=== PATIENT | male | born 1990 | race Two or more races ===

== ENCOUNTER → 2023-08-20 08:04 | Outpatient (REF) | payer OTHER, SELFPAY | LOC: HWRAD 08:04 | PROVIDERS: ATTENDING PHYSICIAN Nurse Practitioner Family | DX: R13.19 Other dysphagia (principal); R52 Pain, unspecified; R50.9 Fever, unspecified | CPT/HCPCS: 76536 ==

== ENCOUNTER → 2023-10-27 09:19 | Outpatient (REF) | payer OTHER, SELFPAY | LOC: HWRAD 09:19 | PROVIDERS: ATTENDING PHYSICIAN Chiropractor; FAMILY PHYSICIAN Nurse Practitioner Family | DX: M54.2 Cervicalgia (principal); M54.6 Pain in thoracic spine | CPT/HCPCS: 72050; 72072 ==

== ENCOUNTER → 2024-01-15 08:55 | Outpatient (REF) | payer OTHER, SELFPAY | LOC: HWRAD 08:55 | PROVIDERS: ATTENDING PHYSICIAN Internal Medicine Hematology & Oncology; FAMILY PHYSICIAN Nurse Practitioner Family | DX: D75.838 Other thrombocytosis (principal); D47.1 Chronic myeloproliferative disease; D72.19 Other eosinophilia; R59.0 Localized enlarged lymph nodes | CPT/HCPCS: 71260; 74177; Q9967 ==

== ENCOUNTER → 2024-02-13 09:27 | Outpatient (REF) | payer OTHER, SELFPAY | LOC: HWRAD 09:27 | PROVIDERS: ATTENDING PHYSICIAN Otolaryngology; FAMILY PHYSICIAN Nurse Practitioner Family | DX: R59.9 Enlarged lymph nodes, unspecified (principal) | CPT/HCPCS: 70491; Q9967 ==

== ENCOUNTER → 2024-12-30 11:29 | Outpatient (REF) | payer BC, SELFPAY | LOC: HWRAD 11:29 | PROVIDERS: ATTENDING PHYSICIAN Nurse Practitioner Family | DX: E04.1 Nontoxic single thyroid nodule (principal) | CPT/HCPCS: 76536 ==

== ENCOUNTER → 2025-03-14 11:24 | Outpatient (REF) | payer BC, SELFPAY | LOC: PAVMRI 11:24 | PROVIDERS: ATTENDING PHYSICIAN Nurse Practitioner Family | DX: R42 Dizziness and giddiness (principal); R51.9 Headache, unspecified; M54.2 Cervicalgia | CPT/HCPCS: 70553; A9575 ==